=== PATIENT | male | born 1990 | race Caucasian/White ===

== ENCOUNTER 2020-08-27 20:42 | Emergency (ER) | payer OTHER ==
[~2020-08-27] VITALS: Ht 182.9 cm; Wt 80.7 kg
[2020-08-28] MEDS ORDERED: VALA500 PO (00:31)
[2020-08-28] MEDS ORDERED: Prednisone50 MG PO (00:31)
[2020-08-28] MEDS ORDERED: Artificial Tear15 ML BOTHEYES (00:31)
== END 2020-08-28 00:52 | disposition home or self-care (01) ==
LOC: ER 20:42
DX: G51.0 Bell's palsy (principal); F17.210 Nicotine dependence, cigarettes, uncomplicated
CPT/HCPCS: 99282